=== PATIENT | male | born 1965 | race Two or more races ===

== ENCOUNTER 2016-09-20 20:46 | Emergency (ER) | payer SELFPAY ==
[~2016-09-20] VITALS: Ht 190.5 cm; Wt 104.3 kg
[2016-09-20 21:18] LABS: Basophils # (auto) 0.1 uL; Basophils % (auto) 0.6 % (0.0-2.0); Eosinophils # (auto) 0.2 uL; Hemoglobin 14.7 g/dL (13.5-17.5); Lymphocytes % (auto) 44.2 % (10.0-50.0); Mean Corpuscular Hemoglobin 30.5 pg (28.0-32.0); Mean Corpuscular Hgb Conc. 33.5 g/dL (32.0-36.0); Mean Corpuscular Volume 91.1 fL (80.0-100.0); Mean Platelet Volume 9.1 fL (7.4-10.4); Monocytes # (auto) 0.7 uL; Monocytes % (auto) 7.8 % (0.0-12.0); Neutrophils # (auto) 4.1 uL; Neutrophils % (auto) 45.4 % (37.0-80.0); Platelet Count (auto) 231 10^3/uL (140-450); Red Cell Distribution Width 13.5 % (11.6-16.0); White Blood Cell 9.1 10^3/uL (4.4-10.8)
[2016-09-20 21:41] LABS: Anion Gap 9 (5-15); Aspartate Aminotransferase 13 U/L (15-37); BUN/Creatinine Ratio 13.5; Blood Urea Nitrogen 18 mg/dL (7-18); Carbon Dioxide 26 mmol/L (21-32); Chloride 105 mmol/L (98-107); GFR African American 73 mL/min; GFR Non-African American 61 mL/min; Glucose 130 mg/dL (74-106); Sodium 140 mmol/L (136-145)
[2016-09-20 21:48] LABS: Alkaline Phosphatase 93 U/L (45-117); Bilirubin, Total 0.4 mg/dL (0.2-1.0); Calcium 8.6 mg/dL (8.5-10.1); Total Protein 7.1 g/dL (6.4-8.2)
[2016-09-21] MEDS ORDERED: SODIUM CHLORIDE 0.9% 1,000 ML IV ONE (07:35)
[2016-09-21] MEDS ORDERED: LABETALOL HCL 5 MG/ML 4ML SYRINGE IV ONE (07:45)
[2016-09-21] MEDS ORDERED: ALPRAZolam 0.5 MG TAB PO ONE (07:45)
[2016-09-21 08:44] LABS: Magnesium 2.5 mg/dL (1.6-2.6)
[2016-09-21 08:53] VITALS: BP 138/102
== END 2016-09-21 10:10 | disposition home or self-care (01) ==
LOC: ER 20:50
DX: R07.89 Other chest pain (principal); I10 Essential (primary) hypertension; R73.9 Hyperglycemia, unspecified; F41.9 Anxiety disorder, unspecified; E78.5 Hyperlipidemia, unspecified
CPT/HCPCS: 36415; 71020; 80053; 83735; 84443; 84484; 85025; 93005; 96361; 96374; 99285; J3490; J7030